=== PATIENT | female | born 1950 | race Caucasian/White ===

== ENCOUNTER 2021-01-31 12:24 | Emergency (ER) | payer OTHER ==
[~2021-01-31] VITALS: Ht 162.6 cm; Wt 96.2 kg
[2021-01-31] MEDS ORDERED: PREDNISONE 20 M20 M1 PO (12:36)
[2021-01-31] MEDS ORDERED: LATANOPROST 0.2.5 ML OPHTHALMIC (12:37)
[2021-01-31] MEDS ORDERED: LOPRESSOR50 MG PO (12:38)
[2021-01-31] MEDS ORDERED: LIPITOR80 MG PO (12:39)
[2021-01-31] MEDS ORDERED: VITAMIN D250 MCG PO (12:39)
[2021-01-31] MEDS ORDERED: OMEPRAZOLE 20 M20 M1 PO (12:40)
[2021-01-31 12:45] VITALS: BP 173/78
== END 2021-01-31 12:49 | disposition home or self-care (01) ==
LOC: M.ERS 12:24
DX: T78.40XA Allergy, unspecified, initial encounter (principal); I10 Essential (primary) hypertension; Z90.710 Acquired absence of both cervix and uterus; Z79.899 Other long term (current) drug therapy; Z88.8 Allergy status to other drugs, medicaments and biological substances; X58.XXXA Exposure to other specified factors, initial encounter

== ENCOUNTER 2021-02-18 23:38 | Observation (INO) | payer OTHER ==
[~2021-02-18] VITALS: Ht 162.6 cm; Wt 94.8 kg
[~2021-02-18 23:38] MED LIST: LATANOPROST 0.2.5 ML OPHTHALMIC; LIPITOR80 MG PO; LOPRESSOR50 MG PO; OMEPRAZOLE 20 M20 M1 PO; PREDNISONE 20 M20 M1 PO; VITAMIN D250 MCG PO
[2021-02-18 23:42] VITALS: BP 184/75
[2021-02-18] MEDS ORDERED: TIMOLOL MALEATE5 M2 OPHTHALMIC (23:47)
[2021-02-18] MEDS ORDERED: HYDRALAZINE 10M10 MG PO (23:47)
[2021-02-18] MEDS ORDERED: NORCO 10-325 T1 EACH PO (23:48)
[2021-02-19 00:14] LABS: HEMATOCRIT 27.1 % (37.0-47.0); HEMOGLOBIN 9.1 gm/dL (12.0-15.0); MCH 32.2 pg (26.0-34.0); MCHC 33.6 g/dL (28.0-37.0); MCV 95.8 fL (80.0-100.0); MPV 8.7 fl. (7.2-11.1); RBC 2.82 mil/uL (4.20-5.00); RDW-CV 14.5 % (10.5-14.5); WBC 4.8 thou/uL (4.0-11.0)
[2021-02-19 00:18] LABS: CALCIUM 8.2 mg/dL (8.5-10.1); POTASSIUM 4.1 mmol/L (3.5-5.1)
[2021-02-19 00:22] LABS: ALBUMIN 2.6 g/dL (3.4-5.0); TOTAL BILIRUBIN 0.4 mg/dL (<0.1-1.0)
[2021-02-19 04:30] VITALS: BP 156/63
[2021-02-19 08:30] VITALS: BP 160/69
--- NOTE | 2021-02-19 09:43 | EKG ---
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[place]TON : 1950 Requested By: Caitlin Regalado Order Number: [id number] MD: Alexandro Apple Measurements Intervals [place] Rate: 62 P: 29 [place]: 174 QRS: 6 QRSD: 87 T: 48 QT: 463 QTc: 471 Interpretive Statements Sinus rhythm Borderline ST depression, lateral leads Baseline wander in lead(s) II No previous ECG available for comparison Electronically Signed On 02-19-2021 9:43:23 [employer]ES [employer]PERATIONS COORDINATOR by Alexandro Apple [email or web address] <ELECTRONICALLY SIGNED> By: Loree Apple MD, [facility] 02/19/21 0943 50 50 Loree Apple MD, [facility] /EPI
[2021-02-19] MEDS ORDERED: PREDNISONE 10 M10 MG PO (10:28)
[2021-02-19 10:38] VITALS: BP 160/69
[2021-02-19 10:48] VITALS: BP 150/60
== END 2021-02-19 10:28 | disposition home or self-care (01) ==
LOC: M.ERS 23:38 → M.TBA-ER 02-19 00:29 → M.ERS 02-19 00:29 → M.TBA-ER 02-19 00:32
PROVIDERS: Personal Emergency Response Attendant; ADMIT Internal Medicine; ATTEND Internal Medicine
DX: T78.3XXA Angioneurotic edema, initial encounter (principal); T78.40XA Allergy, unspecified, initial encounter; Z20.822 Contact with and (suspected) exposure to COVID-19; I10 Essential (primary) hypertension; X58.XXXA Exposure to other specified factors, initial encounter; Z79.899 Other long term (current) drug therapy

== ENCOUNTER 2021-02-20 10:29 | Emergency (ER) | payer OTHER ==
[~2021-02-20] VITALS: Ht 162.6 cm; Wt 93.9 kg
[~2021-02-20 10:29] MED LIST changes: +HYDRALAZINE 10M10 MG PO; +NORCO 10-325 T1 EACH PO; +PREDNISONE 10 M10 MG PO; +TIMOLOL MALEATE5 M2 OPHTHALMIC
[2021-02-20 11:59] LABS: CALCIUM 8.5 mg/dL (8.5-10.1); CREATININE 2.4 mg/dL (0.6-1.3); POTASSIUM 4.3 mmol/L (3.5-5.1)
[2021-02-20 13:53] VITALS: BP 184/83
== END 2021-02-20 13:54 | disposition home or self-care (01) ==
LOC: M.ERS 10:29
PROVIDERS: Emergency Medicine Emergency Medical Services
DX: T78.49XA Other allergy, initial encounter (principal); I10 Essential (primary) hypertension; Z90.711 Acquired absence of uterus with remaining cervical stump; Z79.899 Other long term (current) drug therapy; Z88.8 Allergy status to other drugs, medicaments and biological substances; X58.XXXA Exposure to other specified factors, initial encounter